=== PATIENT | female | born 1970 ===

== ENCOUNTER 2023-04-02 06:49 | Day surgery (SDC) | payer OTHER ==
[~2023-04-02] VITALS: Ht 157.5 cm; Wt 68.9 kg
[~2023-04-02 06:49] MED LIST: TOPROL XL50 M1 PO
[2023-04-02] MEDS ORDERED: TYLENOL325 MG PO (10:46)
[2023-04-02] MEDS ORDERED: BACTRIM DS TAB1 EACH PO (10:47)
== END 2023-04-02 13:05 | disposition home or self-care (01) ==
LOC: CIR.AMB 06:49
PROVIDERS: ATTEND Surgery
DX: D17.1 Benign lipomatous neoplasm of skin and subcutaneous tissue of trunk (principal); D17.79 Benign lipomatous neoplasm of other sites; Z88.0 Allergy status to penicillin; Z20.822 Contact with and (suspected) exposure to COVID-19; I10 Essential (primary) hypertension